=== PATIENT | male | born 1965 | race Caucasian/White ===

== ENCOUNTER → 2017-03-22 | Outpatient (REF) ==
[~2017-03-22] MED LIST: ACCUPRIL10 M1 PO; ACCUPRIL20TAB PO; ASPIRIN 32325 MG/TAB PO; BYSTOLIC5 MG PO; CIALIS20 MG PO; FIBER TABLETS1 TAB PO; FLEXERIL 1010 MG/TAB PO; GENTAMICIN EYE D5 ML OD; HCTZ 25MG TAB25 MG PO; MULTIPLE VITAMI1 CAP PO; NO HOME MEDICATIONS; NORCO 325 MG-51 TAB PO; PEPCID 20MG TAB20 MG PO; PRINIVIL10 MG PO; TRICOR48 MG PO; VALIUM 5MG T5 MG/TAB PO; VIT B COMPLEX; ZITHROMAX 250M250 MG PO
== END ==
LOC: WSOH 10:28
DX: Z00.00 Encounter for general adult medical examination without abnormal findings (principal)